=== PATIENT | male | born 1955 | race Caucasian/White ===

== ENCOUNTER 2019-11-25 07:52 | Inpatient (IN) | payer OTHER ==
[2020-01-20] MEDS ORDERED: Lactated Ringers 1000 ml BAG 1,000 ML IV SCH (06:00)
[2020-01-20] MEDS ORDERED: fentaNYL 100 mcg/2 ml 50 MCG/ML VIAL ONE (09:27)
[2020-01-20] MEDS ORDERED: Midazolam 2 mg/2 ml VIAL 1 mg/ml 2 ml VIAL (2 mg) ONE ×2 (09:27→12:22)
[2020-01-20] MEDS ORDERED: Dexmedetomidine 200 mcg/2 ml 2 ml VIAL (200 mcg) ONE (09:28)
[2020-01-20] MEDS ORDERED: Propofol 10 MG/ML 20 ML BTL ONE ×2 (09:28→13:46)
[2020-01-20] MEDS ORDERED: Lidocaine 2% PF 5 ML VIAL ONE ×2 (09:28)
[2020-01-20] MEDS ORDERED: ROPIVACAINE 5 MG/ML 30 ML BTL (0.5%) ONE ×2 (09:28→11:00)
[2020-01-20] MEDS ORDERED: ceFAZolin 2 GM PREMIX 2 GM/50 ML BAG ONE (10:11)
[2020-01-20] MEDS ORDERED: Buffered Lidocaine 1% SYRIN 1 ml INTRADERM ONE (10:12)
[2020-01-20] MEDS ORDERED: Bupivacaine 0.5% SDV PF 30ML VIAL ONE (11:05)
[2020-01-20] MEDS ORDERED: Phenylephrine 40 mcg/mL 10mL (400mcg) SYRINGE ONE (12:02)
[2020-01-20] MEDS ORDERED: Ketamine HCL 50 mg/ml 10 ml VIAL (500 MG) ONE (12:09)
[2020-01-20] MEDS ORDERED: Phenylephrine IV 10 MG/ML 1 ml VIAL ONE (12:15)
[2020-01-20] MEDS ORDERED: Dexamethasone IV 4 MG/ML VIAL 1 ml VIAL ONE (12:19)
[2020-01-20] MEDS ORDERED: Ondansetron 4 mg VIAL 2 MG/ML 2 ml VIAL IV PRN (12:53)
[2020-01-20] MEDS ORDERED: diPHENhydraMINE 25 mg TAB PO PRN (12:53)
[2020-01-20] MEDS ORDERED: Magnesium Hydroxide LIQ 30 ML UDC PO PRN (12:53)
[2020-01-20] MEDS ORDERED: Ondansetron ODT 4 mg TAB 4 MG TAB PO PRN (12:53)
[2020-01-20] MEDS ORDERED: diPHENhydraMINE IV 50 MG/ML 1 ml VIAL (BENADRYL) IV PRN (12:53)
[2020-01-20] MEDS ORDERED: Lactulose 30 ml UDC PO PRN (12:53)
[2020-01-20] MEDS ORDERED: HYDROmorphone 1 MG/1 ML SYRINGE IV PRN (13:00)
[2020-01-20] MEDS ORDERED: Metoclopramide 5 MG/ML VIAL (10 mg) IV PRN (13:00)
[2020-01-20] MEDS ORDERED: Naloxone 0.4 mg VIAL 0.4 mg/ml 1 ml VIAL IV PRN (13:00)
[2020-01-20] MEDS ORDERED: Ondansetron 4 mg VIAL 2 MG/ML 2 ml VIAL ONE (13:04)
[2020-01-20] MEDS ORDERED: Acetaminophen IV 1 GM/100ML 100 ML ONE (13:04)
[2020-01-20] MEDS ORDERED: Dextrose 50% Syringe 50 ml 25 GM/50 ML SYRINGE IV PUSH PRN (16:10)
[2020-01-20] MEDS: Lactated Ringers 1000 ml BAG 1,000 ML IV SCH (17:11)
[2020-01-20] MEDS ORDERED: ceFAZolin 1 GM in Dextrose 1 GM/50 ML BAG IVPB SCH (20:00)
[2020-01-20] MEDS: ceFAZolin 1 GM* X 3 DOSES POST-OP Q8H (AddVan) IVPB SCH (20:06)
[2020-01-20] MEDS: oxyCODONE/Acetamin 5/325 mg TAB PO PRN (20:08)
[2020-01-20] MEDS: Magnesium Hydroxide LIQ 30 ML UDC PO SCH (20:09)
[2020-01-21] MEDS: Lactated Ringers 1000 ml BAG 1,000 ML IV SCH (01:56)
[2020-01-21] MEDS: oxyCODONE/Acetamin 5/325 mg TAB PO PRN ×2 (01:57→05:39)
[2020-01-21] MEDS: ceFAZolin 1 GM* X 3 DOSES POST-OP Q8H (AddVan) IVPB SCH ×2 (04:02→12:30)
[2020-01-21 06:20] LABS: Hematocrit 36 % (42-52); Hemoglobin 12.1 g/dL (14.0-18.0); Mean Platelet Volume 9.1 fL (7.4-10.4); Platelet Count 259 10^3/uL (150-450)
[2020-01-21 06:50] LABS: BUN/Creatinine Ratio 21.9 (8-20); Calcium 8.7 mg/dL (8.6-10.3); EGFR African American 63.5 (>60); EGFR Non-African American 52.5 (>60); Potassium 4.7 mmol/L (3.5-5.0)
[2020-01-21] MEDS: Magnesium Hydroxide LIQ 30 ML UDC PO SCH (08:10)
[2020-01-21] MEDS ORDERED: Vitamin THERAPEUTIC TAB PO SCH (09:00)
[2020-01-21 11:48] VITALS: BP 100/75
== END 2020-01-21 13:25 | disposition home or self-care (01) | DRG 302 ==
LOC: AA 01-20 09:53 → SSU 01-20 16:12
PROVIDERS: ADMIT Orthopaedic Surgery Adult Reconstructive Orthopaedic Surgery; ATTEND Hospitalist

== ENCOUNTER 2021-11-08 06:19 | Observation (INO) ==
[~2021-11-08 06:19] MED LIST: Buffered Lidocaine 1% SYRIN 1 ml INTRADERM ONE; Lactated Ringers 1000 ml BAG 1,000 ML IV SCH
[2021-11-08] MEDS ORDERED: fentaNYL 100 mcg/2 ml 50 MCG/ML VIAL ONE (06:40)
[2021-11-08] MEDS ORDERED: Lidocaine 2% PF 5 ML VIAL ONE (06:40)
[2021-11-08] MEDS ORDERED: Propofol 10 MG/ML 20 ML BTL ONE (06:40)
[2021-11-08] MEDS ORDERED: Phenylephrine IV 10 MG/ML 1 ml VIAL ONE (06:40)
[2021-11-08] MEDS ORDERED: Ondansetron 4 mg VIAL 2 MG/ML 2 ml VIAL ONE ×2 (06:40→13:02)
[2021-11-08] MEDS ORDERED: Dexamethasone IV 4 MG/ML VIAL 1 ml VIAL ONE ×2 (06:40)
[2021-11-08] MEDS ORDERED: Midazolam 2 mg/2 ml VIAL 1 mg/ml 2 ml VIAL (2 mg) ONE (06:40)
[2021-11-08] MEDS ORDERED: Ropivacaine 5 MG/ML 20 ML VIAL 0.5% (100 MG) ONE (06:58)
[2021-11-08] MEDS ORDERED: ceFAZolin 1 GM ADVAN 1 GM ADDV.VIAL IVPB ONE (07:46)
[2021-11-08] MEDS ORDERED: ROPIVACAINE 5 MG/ML 30 ML BTL (0.5%) ONE (07:51)
[2021-11-08] MEDS ORDERED: Lidocaine 1% MPF 5 ML VIAL ONE (07:51)
[2021-11-08] MEDS ORDERED: Rocuronium 50 mg VIAL 10 mg/ml 5 ml VIAL (50 mg) ONE (09:30)
[2021-11-08] MEDS ORDERED: Acetaminophen IV 1 GM/100ML 100 ML IV ONE (10:11)
[2021-11-08] MEDS ORDERED: Acetaminophen IV 1 GM/100ML 100 ML IV PRN (10:16)
[2021-11-08] MEDS ORDERED: Naloxone 0.4 mg VIAL 0.4 mg/ml 1 ml VIAL IV PRN (10:16)
[2021-11-08] MEDS ORDERED: DiMENhydriNATE IV 50 mg/ml 1 ml VIAL IV PUSH PRN (10:16)
[2021-11-08] MEDS ORDERED: HYDROmorphone 1 MG/1 ML SYRINGE IV PRN (10:16)
[2021-11-08] MEDS ORDERED: fentaNYL 100 mcg/2 ml 50 MCG/ML VIAL IV PRN (10:16)
[2021-11-08] MEDS ORDERED: diPHENhydraMINE IV 50 MG/ML 1 ml VIAL (BENADRYL) IV PRN ×2 (10:16→10:34)
[2021-11-08] MEDS ORDERED: Ondansetron 4 mg VIAL 2 MG/ML 2 ml VIAL IV PRN ×2 (10:16→10:34)
[2021-11-08] MEDS ORDERED: Prochlorperazine 5 mg/ml 2 ml VIAL (10 mg) IV PRN (10:16)
[2021-11-08] MEDS ORDERED: diPHENhydraMINE 25 mg TAB PO PRN (10:34)
[2021-11-08] MEDS ORDERED: Lactulose 30 ml UDC PO PRN (10:34)
[2021-11-08] MEDS ORDERED: Magnesium Hydroxide LIQ 30 ML UDC PO PRN (10:34)
[2021-11-08] MEDS ORDERED: Ondansetron ODT 4 mg TAB 4 MG TAB PO PRN (10:34)
[2021-11-08] MEDS ORDERED: Lactated Ringers 1000 ml BAG 1,000 ML IV SCH (11:00)
[2021-11-08] MEDS ORDERED: HYDROmorphone 0.5 MG/0.5 ML SYRINGE ONE ×2 (11:44)
[2021-11-08] MEDS: ceFAZolin 1 GM ADVAN 1 GM in NS 0.9% 50 ML 50 ML IVPB SCH (17:33)
[2021-11-08] MEDS: Magnesium Hydroxide LIQ 30 ML UDC PO SCH (20:28)
[2021-11-09] MEDS: ceFAZolin 1 GM ADVAN 1 GM in NS 0.9% 50 ML 50 ML IVPB SCH ×2 (01:34→08:55)
[2021-11-09 06:46] LABS: Hematocrit 37 % (42-52); Hemoglobin 12.4 g/dL (14.0-18.0); Mean Platelet Volume 8.8 fL (7.4-10.4); Platelet Count 272 10^3/uL (150-450)
[2021-11-09 06:59] LABS: Calcium 8.6 mg/dL (8.6-10.3); eGFR CKD-EPI 61.5 (>60)
[2021-11-09 07:00] LABS: Potassium 5.2 mmol/L (3.5-5.0)
[2021-11-09] MEDS: Magnesium Hydroxide LIQ 30 ML UDC PO SCH (08:54)
[2021-11-09] MEDS ORDERED: Vitamin THERAPEUTIC TAB PO SCH (09:00)
[2021-11-09 11:16] VITALS: BP 116/68
[2021-11-09 12:47] LABS: Calcium 8.6 mg/dL (8.6-10.3); Potassium 4.6 mmol/L (3.5-5.0); eGFR CKD-EPI 71.4 (>60)
== END 2021-11-09 14:35 | disposition home or self-care (01) ==
LOC: OR 06:19 → SSU 06:19
PROVIDERS: ADMIT Orthopaedic Surgery Adult Reconstructive Orthopaedic Surgery; ATTEND Orthopaedic Surgery Adult Reconstructive Orthopaedic Surgery

== ENCOUNTER 2023-08-05 14:42 | Observation (INO) ==
[~2023-08-05 14:42] MED LIST changes: -Buffered Lidocaine 1% SYRIN 1 ml INTRADERM ONE; +Iodixanol 320 (CONTRAST) 100 ML SDV IV ONE; -Lactated Ringers 1000 ml BAG 1,000 ML IV SCH
[2023-08-05 15:20] LABS: Activated Partial Thrombo Time 35.4 seconds (26.0-38.0); INR 1.05 (0.83-1.13)
[2023-08-05 15:50] LABS: ABS Basophils 0.1 10^3/uL (0.0-0.1); ABS Eosinophils 0.4 10^3/uL (0.0-0.5); ABS Lymphocytes 2.5 10^3/uL (1.0-4.8); ABS Monocytes 1.1 10^3/uL (0.0-1.1); ABS Neutrophils 3.9 10^3/uL (1.5-7.6); ABS Nucleated RBC 0.01 10^3/ul; Eosinophil % 4.5 %; Hematocrit 45.5 % (38-53); Hemoglobin 15.3 g/dL (13.2-16.3); Lymphocyte % 31.3 %; Mean Corpuscular Hemoglobin 30.3 pg (27-33); Mean Corpuscular Hgb Conc 33.6 g/dL (31-36); Mean Platelet Volume 8.8 fL (7.5-11.2); Nucleated Red Blood Cells % 0.1 %/100WBC (0.0-0.8); Platelet Count 307 10^3/uL (150-450); Red Blood Count 5.05 10^6/uL (4.06-5.63); Red Cell Distribution Width 14.6 % (12-17); White Blood Count 7.9 10^3/uL (3.6-10.2)
[2023-08-05 16:08] LABS: Albumin 4.1 g/dL (3.2-5.2); Albumin/Globulin Ratio 1.3 (1-3); Calcium 9.2 mg/dL (8.6-10.3); Creatinine, Serum 0.93 mg/dL (0.67-1.17); Direct Bilirubin 0.1 mg/dL (0.03-0.18); Globulin 3.2 g/dL (2-4); HDL Cholesterol 39.8 mg/dL; Indirect Bilirubin 0.6 mg/dL (0.3-1.0); Potassium 4.1 mmol/L (3.5-5.0); Total Bilirubin 0.7 mg/dL (0.2-1.0); Total Protein 7.3 g/dL (6.4-8.9); eGFR CKD-EPI 90.6 (>60)
[2023-08-05 16:44] LABS: Urine Appearance Clear; Urine Bilirubin Negative (Negative); Urine Blood Negative (Negative); Urine Color Yellow; Urine Glucose Negative (Negative); Urine Ketones Negative (Negative); Urine Nitrite Negative (Negative); Urine Protein 1+(30 mg/dL) (Negative); Urine Specific Gravity 1.046 (1.002-1.030); Urine Urobilinogen Negative (Negative)
[2023-08-05 16:48] LABS: Urine Bacteria Absent (Absent); Urine Red Blood Cell Trace(0-2/hpf) (Absent); Urine White Blood Cell Trace(0-5/hpf) (Absent)
[2023-08-05] MEDS ORDERED: Lactated Ringers 1000 ml BAG 1,000 ML IV ONE (17:48)
[2023-08-06 06:19] LABS: ABS Basophils 0.3 10^3/uL (0.0-0.1); ABS Eosinophils 0.5 10^3/uL (0.0-0.5); ABS Lymphocytes 1.6 10^3/uL (1.0-4.8); ABS Neutrophils 5.1 10^3/uL (1.5-7.6); ABS Nucleated RBC 0.01 10^3/ul; Hematocrit 46.3 % (38-53); Hemoglobin 15.3 g/dL (13.2-16.3); Lymphocyte % 18.9 %; Mean Corpuscular Hgb Conc 33.1 g/dL (31-36); Mean Corpuscular Volume 90.7 fL (80-97); Mean Platelet Volume 8.8 fL (7.5-11.2); Nucleated Red Blood Cells % 0.1 %/100WBC (0.0-0.8); Platelet Count 290 10^3/uL (150-450); Red Cell Distribution Width 14.8 % (12-17); White Blood Count 8.6 10^3/uL (3.6-10.2)
[2023-08-06 06:40] LABS: Anion Gap 7 mmol/L (2-16); Blood Urea Nitrogen 14 mg/dL (6-24); CO2 Carbon Dioxide 26 mmol/L (22-32); Calcium 8.3 mg/dL (8.6-10.3); Chloride 103 mmol/L (101-111); Creatinine, Serum 0.89 mg/dL (0.67-1.17); Glucose 135 mg/dL (70-100); Sodium 136 mmol/L (135-145); eGFR CKD-EPI 94.5 (>60)
[2023-08-06 07:46] LABS: Magnesium 1.9 mg/dL (1.9-2.7); Phosphorus 2.8 mg/dL (2.5-5.0); Potassium Redraw 4.1 mmol/L (3.5-5.0)
[2023-08-06] MEDS ORDERED: LORazepam 2 mg VIAL 1 ml IV PUSH ONE ×2 (09:18→14:50)
[2023-08-06] MEDS ORDERED: Lorazepam PYXIS KEY PRN ×2 (09:18→14:50)
[2023-08-06] MEDS ORDERED: Sulfur Hexaflouride MICROSPHR 25 MG VIAL ONE (11:31)
[2023-08-06] MEDS ORDERED: Enoxaparin 40 MG/0.4 ML SYR SUBCUT SCH (18:00)
[2023-08-07 11:21] VITALS: BP 133/75
[2023-08-07 23:39] LABS: Anaplasma phagocytophilum Negative (Negative); B. miyamotoi PCR, B Negative (Negative); Babesia divergens/MO-1 Negative (Negative); Babesia ducani Negative (Negative); Ehrlichia chaffeensis Negative (Negative); Ehrlichia ewingii/canis Negative (Negative); Ehrlichia muris eauclairensis Negative (Negative)
== END 2023-08-07 17:39 | disposition home or self-care (01) ==
LOC: ED 14:42 → EDHOLD 18:51 → INTOOBSV 18:51 → SUATTDRO 18:51 → EDHOLD 08-06 10:13 → MEDTELE 08-06 12:56
PROVIDERS: ADMIT Internal Medicine; ATTEND Internal Medicine